=== PATIENT | male | born 1990 | race Caucasian/White ===

== ENCOUNTER 2016-12-16 23:17 | Emergency (ER) | payer SELFPAY ==
--- NOTE | 2016-12-16 23:28 | C.PDOC ---
History Of Present Illness Patient presents to the ER with sudden onset sharp, stabbing right flank pain that radiates to groin. Patient has some nausea but denies any vomiting. Time Seen by Provider: 12/16/16 23:28 History Per: Patient History/Exam Limitations: no limitations Onset/Duration Of Symptoms: Hrs, Sudden Onset Severity: Moderate Pain Scale Rating Of: 7 Location Of Pain/Discomfort: Other (Right flank) Radiation Of Pain To:: Other (groin) Quality Of Discomfort: Sharp, Stabbing Associated Symptoms: Nausea. denies: Vomiting Exacerbating Factors: None Alleviating Factors: None Recent travel outside of the [place]: No Past Medical History Reviewed: Historical Data, Nursing Documentation, Vital Signs Vital Signs: Last Vital Signs Temp 98.3 F 12/17/16 00:07 Pulse 61 12/16/16 23:33 Resp 24 12/16/16 23:33 BP 132/92 H 12/16/16 23:33 Pulse Ox 100 12/17/16 01:01 - Medical History PMH: No Chronic Diseases Surgical History: No Surg Hx Family History: States: No Known Family Hx Review Of Systems Constitutional: Negative for: Fever Gastrointestinal: Positive for: Nausea. Negative for: Vomiting Musculoskeletal: Positive for: Back Pain (right flank pain) Physical Exam - Physical Exam Appears: Non-toxic Skin: Warm, Dry Head: Normacephalic Oral Mucosa: Moist Chest: Symmetrical Cardiovascular: Rhythm Regular Respiratory: No Rales, No Rhonchi, No Wheezing Gastrointestinal/Abdominal: Soft, No Tenderness, No Guarding, No Rebound Back: Other (right flank; no guarding or rebound) Neurological/Psych: Oriented x3 ED Course And Treatment - Laboratory Results Result Diagrams: 12/17/16 00:14 12/17/16 00:14 O2 Sat by Pulse Oximetry: 100 Pulse Ox Interpretation: Normal Progress Note: Blood tests, Urinalysis, CT Scan Abd/Pelvis W/O PO or IV Cont. Meds: Pepcid,Toradol,Zofran,IV fluid,Flomax Reevaluation Time: 01:29 Reassessment Condition: Improved Disposition Counseled Patient/Family Regarding: Studies Performed, Diagnosis, Need For Followup, Rx Given - Disposition Referrals: Jamir Jose MD [Staff Provider] - Disposition: HOME/ ROUTINE Disposition Time: 23:28 Condition: FAIR Additional Instructions: Please return if Symptoms recur Prescriptions: Naproxen [Naprosyn] 1 tab PO BID PRN #25 tab PRN Reason: Pain Ondansetron ODT [Zofran ODT] 1 odt PO BID PRN #6 odt PRN Reason: Nausea/Vomiting oxyCODONE/Acetaminophen [Percocet 5/325 mg Tab] 1 tab PO TID #10 tab Tamsulosin [Flomax] 0.4 mg PO DAILY #15 cap Instructions: Kidney Stones (DC), Renal Colic (ED), Flank Pain (ED) - Clinical Impression Clinical Impression: Renal colic on right side, Kidney stone on right side - Scribe Statement The provider has reviewed the documentation as recorded by the Scribkatya Franco All medical record entries made by the Greg were at my direction and personally dictated by me. I have reviewed the chart and agree that the record accurately reflects my personal performance of the history, physical exam, medical decision making, and the department course for this patient. I have also personally directed, reviewed, and agree with the discharge instructions and disposition.
[2016-12-16] MEDS ORDERED: Sodium Chloride 0.9% 1,000 ML ONE (23:30)
[2016-12-16] MEDS ORDERED: Sodium Chloride 0.9% 2,000 ML IV ONE (23:36)
[2016-12-16 23:39] VITALS: O2SAT 100
[2016-12-17 00:08] VITALS: TEMP 98.3
[2016-12-17 00:39] LABS: CHLORIDE 98 mmol/L (98-107)
[2016-12-17 00:40] LABS: BASO # 0.1 K/uL (0.0-0.2); BASO % 0.6 % (0.0-2.0); EOS % 5.7 % (0.0-4.0); HEMATOCRIT 39.6 % (35.0-51.0); LYMPH # 2.7 K/uL (1.0-4.3); LYMPH % 15.1 % (20.0-40.0); MEAN CORPUSCULAR HEMOGLOBIN 25.5 pg (27.0-31.0); MEAN CORPUSCULAR HGB CONC 33.5 g/dL (33.0-37.0); MEAN PLATELET VOLUME 8.5 fL (7.2-11.7); MONO % 5.7 % (0.0-10.0); POTASSIUM 4.1 mmol/L (3.6-5.2); RED CELL DISTRIBUTION WIDTH 13.7 % (11.5-14.5); SODIUM 134 mmol/L (132-148); WHITE BLOOD COUNT 17.8 K/uL (4.8-10.8)
[2016-12-17 00:42] LABS: ALB/GLOB RATIO 1.1 (1.0-2.1); ALKALINE PHOSPHATASE 74 U/L (38-126); AST/SGOT 27 U/L (17-59); BILIRUBIN,TOTAL 0.4 mg/dL (0.2-1.3); BLOOD UREA NITROGEN 14 mg/dL (9-20); CARBON DIOXIDE 23 mmol/L (22-30); GFR AFRICAN-AMERICAN > 60; GLUCOSE,RANDOM 134 mg/dL (75-110); TOTAL PROTEIN 8.5 g/dL (6.3-8.3)
[2016-12-17 00:43] LABS: ALT/SGPT 41 U/L (21-72); CALCIUM 9.5 mg/dl (8.6-10.4)
[2016-12-17 00:58] LABS: RBC URINE 437 /hpf (0-3); URINE BACTERIA RARE (<OCC); URINE BILIRUBIN NEGATIVE (NEGATIVE); URINE BLOOD 3+ (NEGATIVE); URINE CALCIUM OXALATE CRYSTALS FEW /hpf (<OCC); URINE GLUCOSE (UA) NORMAL (Normal); URINE KETONE NEGATIVE (NEGATIVE); URINE LEUKOCYTE ESTERASE NEG Leu/uL (Negative); URINE PROTEIN NEGATIVE (NEGATIVE); WBC URINE 4 /hpf (0-5)
--- NOTE | 2016-12-17 01:07 | CT ---
EXAM: CT Abdomen and Pelvis Without Intravenous Contrast CLINICAL HISTORY: 26 years old, male; Pain; Abdominal pain and other: Ho. Kidney stone; Additional info: Abd pain TECHNIQUE: Axial computed tomography images of the abdomen and pelvis without intravenous contrast. All CT scans at this facility use one or more dose reduction techniques, viz.: automated exposure control; ma/kV adjustment per patient size (including targeted exams where dose is matched to indication; i.e. head); or iterative reconstruction technique. Coronal and sagittal reformatted images were created and reviewed. COMPARISON: No relevant prior studies available. FINDINGS: Lower thorax: There is minimal bibasilar atelectasis. ABDOMEN: Liver: There are no focal liver lesions present. Gallbladder and bile ducts: The gallbladder is contracted but otherwise normal. No calcified stones. No ductal dilation. Pancreas: The pancreas is normal. No ductal dilation. Spleen: The spleen is normal. Adrenals: The adrenal glands are normal. Kidneys and ureters: Right kidney demonstrates mild hydronephrosis and hydroureter with no obstructing calculus. Findings could relate to recently passed calculus, please correlate clinically. The left kidney is normal. Stomach and bowel: Stomach is predominantly decompressed. There is mild colonic constipation. There is no evidence of intestinal obstruction. No mucosal thickening. Appendix: A normal appendix is identified. PELVIS: Bladder: Bladder is decompressed. No stones. Reproductive: TheThe prostate gland and seminal vesicles are normal. ABDOMEN and PELVIS: Intraperitoneal space: There is no evidence of free intraperitoneal fluid. There is no free intraperitoneal air. Bones/joints: There are minimal degenerative changes present. No acute fracture. No dislocation. Soft tissues: Unremarkable. Vasculature: The aorta is normal. No abdominal aortic aneurysm. Lymph nodes: There is no evidence of lymphadenopathy. IMPRESSION: 1. Right kidney demonstrates mild hydronephrosis and hydroureter with no obstructing calculus. Findings could relate to recently passed calculus, please correlate clinically. 2. Additional incidental and/or chronic findings as described.
[2016-12-17 01:13] LABS: URINE COLOR AMBER (YELLOW)
[2016-12-17 01:49] VITALS: BP 109/64; PULSE 64; RESP 20
== END 2016-12-17 01:49 | disposition home or self-care (01) ==
LOC: C.ER 23:17
DX: N20.0 Calculus of kidney (principal)
CPT/HCPCS: 74176; 80053; 81001; 82948; 83690; 85025; 96361; 96374; 96375; 99284; J1885; J2270; J2405; J7040